=== PATIENT | female | born 1980 | race Caucasian/White ===

== ENCOUNTER 2021-07-09 10:52 | Outpatient (CLI) | payer OTHER | END 2021-07-09 10:53 | disposition home or self-care (01) | LOC: CSHLAB 10:52 | PROVIDERS: ATTEND Obstetrics & Gynecology | DX: Z01.812 Encounter for preprocedural laboratory examination (principal); O32.1XX0 Maternal care for breech presentation, not applicable or unspecified; Z53.9 Procedure and treatment not carried out, unspecified reason | CPT/HCPCS: 85027; 86780; 86850; 86870; 86900; 86901; 87340; U0003; U0005 ==

== ENCOUNTER 2021-07-11 09:55 | Inpatient (IN) | payer OTHER ==
[2021-07-09 14:01] LABS: Hemoglobin 13.3 g/dL (12.0-15.5); Mean Corpuscular HGB CONC 33.8 g/dL (32.0-36.0); Mean Corpuscular Hemoglobin 32.4 pg (27.0-33.0); Mean Corpuscular Volume 96.1 fl (81.6-98.3); Mean Platelet Volume 13.9 fl (7.4-10.4); Platelet Count 184 10x3/uL (150-450); White Blood Cell (WBC) Count 9.9 10x3/uL (3.5-10.5)
[2021-07-09 14:35] LABS: Hep B Surf Ag Non-Reactive S/CO (NonReactive); Syphilis Antibody Nonreactive (Nonreactive); Syphilis Antibody Index 0.04 S/CO (<1.00 Non-Reactive)
[2021-07-09 15:17] LABS: HBSAg Index 0.16 S/CO (0-0.99)
[2021-07-10 12:35] LABS: SARS-CoV-2 PCR by NAA Not Detected (NotDetected)
[2021-07-11] MEDS ORDERED: Ondansetron PF 4 MG/2 ML Vial IVP PRN ×2 (10:42→11:37)
[2021-07-11] MEDS ORDERED: hydrALAZINE 20 MG/ML VIAL SLOW IVP PRN ×2 (10:42→16:26)
[2021-07-11] MEDS ORDERED: Famotidine/PF 20 mg/2ml Vial SLOW IVP PRN (10:42)
[2021-07-11] MEDS ORDERED: ceFAZolin 2 GM/Dextrose 50 ML 2 GM in Premix Bag 1 BAG IVPB SCH (10:42)
[2021-07-11] MEDS ORDERED: Promethazine HCl 25 MG/ML VIAL IM PRN ×2 (10:42→11:37)
[2021-07-11] MEDS ORDERED: Bicitra 30 ML UDCUP PO PRN (10:42)
[2021-07-11] MEDS ORDERED: Lactated Ringer's 1,000 ML IV SCH (10:42)
[2021-07-11 10:52] VITALS: BMI 29.0
[2021-07-11] MEDS ORDERED: Morphine PF 10 MG/10 ML VIAL ONE (11:23)
[2021-07-11] MEDS ORDERED: Ondansetron PF 4 MG/2 ML Vial ONE (11:24)
[2021-07-11] MEDS ORDERED: Ketorolac Tromethamine 30 MG/ML VIAL ONE (11:24)
[2021-07-11] MEDS ORDERED: Phenylephrine 10 MG/ML VIAL ONE (11:24)
[2021-07-11] MEDS ORDERED: Fentanyl 100 MCG/2 ML VIAL ONE (11:24)
[2021-07-11] MEDS ORDERED: Oxytocin 10 UNITS/ML VIAL ONE ×2 (11:25→12:53)
[2021-07-11] MEDS ORDERED: Moisturizing Cream (Eucerin) 113 GM JAR TOP PRN (11:37)
[2021-07-11] MEDS ORDERED: Ondansetron HCl/PF 4 MG/2 ML Vial IVP PRN (11:37)
[2021-07-11] MEDS ORDERED: HYDROmorphone 2 MG/ML VIAL SLOW IVP PRN (11:37)
[2021-07-11] MEDS ORDERED: Meperidine HCl/PF 25 MG/ML VIAL SLOW IVP PRN (11:37)
[2021-07-11] MEDS ORDERED: Naloxone HCl 0.4 mg/ml Vial IVP PRN ×2 (11:37)
[2021-07-11] MEDS ORDERED: Promethazine HCl 25 MG SUPP PR PRN (11:37)
[2021-07-11] MEDS ORDERED: Fentanyl 100 MCG/2 ML VIAL SLOW IVP PRN (11:37)
[2021-07-11] MEDS ORDERED: diphenhydrAMINE 50 MG/ML VIAL IVP PRN (11:37)
[2021-07-11] MEDS ORDERED: Naloxone HCl 0.4 mg/ml Vial IV PRN (11:37)
[2021-07-11] MEDS ORDERED: Communication Order-Pharmacy FS SCH (11:45)
[2021-07-11] MEDS ORDERED: Ketorolac Tromethamine 30 MG/ML VIAL IVP SCH (11:45)
[2021-07-11] MEDS ORDERED: Misoprostol 200 MCG TAB ONE (13:47)
[2021-07-11] MEDS ORDERED: NS w/ Oxytocin 30 units 500 ML IV SCH (16:26)
[2021-07-11] MEDS ORDERED: Lanolin Ointment 7 GM TUBE TOP PRN (16:26)
[2021-07-11] MEDS ORDERED: Measles/Mumps/Rubella 10 MCG/0.5 ML VIAL SC ONE (16:26)
[2021-07-11] MEDS ORDERED: Bisacodyl 10 MG SUPP PR PRN (16:26)
[2021-07-11] MEDS ORDERED: Acetaminophen 325 MG TAB PO PRN (16:26)
[2021-07-11] MEDS ORDERED: Boostrix 0.5 ML (Tdap) VIAL IM ONE (16:26)
[2021-07-11] MEDS ORDERED: diphenhydrAMINE 25 MG CAP PO PRN (16:26)
[2021-07-11] MEDS ORDERED: Simethicone Chewable 80 MG TAB PO PRN (16:26)
[2021-07-11] MEDS ORDERED: Varicella virus, LIVE 0.5 ML VIAL SC ONE (16:26)
[2021-07-11] MEDS ORDERED: Misoprostol 200 MCG TAB PR PRN (16:26)
[2021-07-11] MEDS ORDERED: HYDROcodone/Acetaminophen 5/325 mg Tablet PO PRN ×2 (16:26)
[2021-07-11] MEDS: Ferrous Sulfate 325 MG TAB PO SCH (22:03)
[2021-07-11] MEDS: Docusate 100 MG CAP PO SCH (22:03)
[2021-07-11] MEDS: Ketorolac Tromethamine 30 MG/ML VIAL IVP PRN (22:03)
[2021-07-12] MEDS ORDERED: Methylergonovine 0.2 MG/ML VIAL IM SCH (01:45)
[2021-07-12 02:52] LABS: Mean Corpuscular HGB CONC 35.2 g/dL (32.0-36.0); Mean Corpuscular Hemoglobin 32.8 pg (27.0-33.0); Mean Corpuscular Volume 93.4 fl (81.6-98.3); Mean Platelet Volume 12.2 fl (7.4-10.4); Platelet Count 185 10x3/uL (150-450); RBC Distribution Width 13.1 % (11.5-14.5); Red Blood Cell (RBC) Count 2.74 10x6/uL (3.90-5.03); White Blood Cell (WBC) Count 22.3 10x3/uL (3.5-10.5)
[2021-07-12] MEDS ORDERED: ceFAZolin 2 GM/Dextrose 50 ML 2 GM in Premix Bag 1 BAG IVPB SCH (03:00)
[2021-07-12] MEDS ORDERED: Tranexamic Acid 1,000 MG in Sodium Chloride 0.9% 250 ML 250 ML IVPB ONE (03:15)
[2021-07-12 03:48] LABS: D-Dimer Test 14.18 mg/L FEU (0.19-0.50); INR-International Normal Ratio 0.9; PTT 25.9 sec (22.0-33.0); Prothrombin Time 9.7 sec (9.5-12.1)
[2021-07-12] MEDS: Ketorolac Tromethamine 30 MG/ML VIAL IVP PRN (04:00)
[2021-07-12] MEDS ORDERED: Ibuprofen 800 MG TAB PO SCH ×2 (08:00→14:00)
[2021-07-12] MEDS ORDERED: Methylergonovine 0.2 MG TAB PO SCH (09:00)
[2021-07-12] MEDS ORDERED: Prenatal Vitamin 1 TAB PO SCH (09:00)
[2021-07-12] MEDS: Ferrous Sulfate 325 MG TAB PO SCH ×2 (09:01→21:52)
[2021-07-12] MEDS: Docusate 100 MG CAP PO SCH ×2 (09:01→21:52)
[2021-07-12] MEDS ORDERED: Rocuronium Bromide 10 MG/ML (10ML VIAL) ONE (10:28)
[2021-07-12] MEDS ORDERED: Lidocaine 1% PF 5 ML VIAL ONE (10:28)
[2021-07-12] MEDS ORDERED: PROPOFOL 20 ML ONE (10:28)
[2021-07-12] MEDS ORDERED: Fentanyl 100 MCG/2 ML VIAL ONE (10:28)
[2021-07-12] MEDS ORDERED: Succinylcholine 200 MG/10 ml SYRINGE FS ONE (10:28)
[2021-07-12 10:45] LABS: Hemoglobin 6.9 g/dL (12.0-15.5)
[2021-07-12] MEDS ORDERED: Dexamethasone 20 MG/5 ML VIAL ONE (11:00)
[2021-07-12] MEDS ORDERED: Ondansetron PF 4 MG/2 ML Vial ONE (11:00)
[2021-07-12] MEDS ORDERED: PHENYLEPHRINE-NS 100 MCG/ML 10 ML SYRINGE ONE ×2 (11:03)
[2021-07-12] MEDS ORDERED: Oxytocin 10 UNITS/ML VIAL ONE ×2 (11:04→11:36)
[2021-07-12] MEDS ORDERED: CEFAZOLIN 1 GM VIAL ONE (11:07)
[2021-07-12] MEDS ORDERED: ePHEDrine Sulfate 50 MG/10 ML VIAL ONE (11:11)
[2021-07-12] MEDS ORDERED: SUGAMMADEX SODIUM 200 MG/2 ML VIAL ONE (11:27)
[2021-07-12] MEDS ORDERED: Misoprostol 200 MCG TAB ONE (11:28)
[2021-07-12] MEDS ORDERED: Glycopyrrolate 0.2 MG/ML 5 ML SYRINGE ONE (11:59)
[2021-07-12] MEDS ORDERED: hydrALAZINE 20 MG/ML VIAL SLOW IVP PRN (12:24)
[2021-07-12] MEDS ORDERED: Acetaminophen 325 MG TAB PO PRN (12:24)
[2021-07-12] MEDS ORDERED: Simethicone Chewable 80 MG TAB PO PRN (12:24)
[2021-07-12] MEDS ORDERED: Ondansetron PF 4 MG/2 ML Vial IVP PRN (12:24)
[2021-07-12] MEDS ORDERED: HYDROcodone/Acetaminophen 5/325 mg Tablet PO PRN (12:24)
[2021-07-12] MEDS ORDERED: Bisacodyl 10 MG SUPP PR PRN (12:24)
[2021-07-12] MEDS ORDERED: Boostrix 0.5 ML (Tdap) VIAL IM ONE (12:24)
[2021-07-12] MEDS ORDERED: diphenhydrAMINE 25 MG CAP PO PRN (12:24)
[2021-07-12] MEDS ORDERED: Lanolin Ointment 7 GM TUBE TOP PRN (12:24)
[2021-07-12] MEDS ORDERED: NS w/ Oxytocin 30 units 500 ML IV SCH (12:30)
[2021-07-12] MEDS: Methylergonovine 0.2 MG TAB PO SCH ×2 (12:41→16:43)
[2021-07-12 12:56] LABS: Hemoglobin 8.7 g/dL (12.0-15.5); Platelet Count 137 10x3/uL (150-450)
[2021-07-12 13:23] LABS: D-Dimer Test 11.32 mg/L FEU (0.19-0.50); INR-International Normal Ratio 0.9; PTT 28.4 sec (22.0-33.0); Prothrombin Time 9.9 sec (9.5-12.1)
[2021-07-12] MEDS: Ibuprofen 800 MG TAB PO SCH ×2 (15:48→16:21)
[2021-07-12] MEDS: Lactated Ringer's 1,000 ML IV SCH ×2 (15:48→21:12)
[2021-07-12] MEDS: HYDROcodone/Acetaminophen 5/325 mg Tablet PO PRN ×2 (16:22→20:24)
[2021-07-13] MEDS: Ibuprofen 800 MG TAB PO SCH ×4 (00:59→22:02)
[2021-07-13] MEDS: HYDROcodone/Acetaminophen 5/325 mg Tablet PO PRN ×3 (06:47→22:01)
[2021-07-13] MEDS: Lactated Ringer's 1,000 ML IV SCH ×2 (08:00→19:09)
[2021-07-13 08:23] LABS: Mean Corpuscular HGB CONC 33.1 g/dL (32.0-36.0); Mean Corpuscular Hemoglobin 29.7 pg (27.0-33.0); Mean Corpuscular Volume 89.8 fl (81.6-98.3); Mean Platelet Volume 12.4 fl (7.4-10.4); Platelet Count 131 10x3/uL (150-450); RBC Distribution Width 16.5 % (11.5-14.5); Red Blood Cell (RBC) Count 3.03 10x6/uL (3.90-5.03); White Blood Cell (WBC) Count 17.7 10x3/uL (3.5-10.5)
[2021-07-13] MEDS: Prenatal Vitamin 1 TAB PO SCH (08:31)
[2021-07-13] MEDS: Docusate 100 MG CAP PO SCH ×2 (08:32→22:02)
[2021-07-13] MEDS: Ferrous Sulfate 325 MG TAB PO SCH ×2 (08:32→22:02)
[2021-07-14] MEDS: Ibuprofen 800 MG TAB PO SCH (05:50)
[2021-07-14] MEDS: HYDROcodone/Acetaminophen 5/325 mg Tablet PO PRN ×2 (05:50→11:06)
[2021-07-14] MEDS: Ferrous Sulfate 325 MG TAB PO SCH (08:24)
[2021-07-14] MEDS: Docusate 100 MG CAP PO SCH (08:24)
[2021-07-14] MEDS: Prenatal Vitamin 1 TAB PO SCH (08:24)
[2021-07-14 09:30] VITALS: TEMP 98.8
[2021-07-14 11:08] VITALS: BP 133/76
== END 2021-07-14 12:45 | disposition home or self-care (01) | DRG 787 ==
LOC: CSHLD 09:55 → CSHPP 16:00
PROVIDERS: ADMIT Obstetrics & Gynecology; ATTEND Obstetrics & Gynecology
PROC: 10D00Z1 Extraction of Products of Conception, Low, Open Approach (ICD-10-PCS; principal; 2021-07-11)
PROC: 3E0334Z Introduction of Serum, Toxoid and Vaccine into Peripheral Vein, Percutaneous Approach (ICD-10-PCS; 2021-07-11)
PROC: 10D17Z9 Manual Extraction of Products of Conception, Retained, Via Natural or Artificial Opening (ICD-10-PCS; 2021-07-12)
PROC: 30233N1 Transfusion of Nonautologous Red Blood Cells into Peripheral Vein, Percutaneous Approach (ICD-10-PCS; 2021-07-12)
DX: O32.1XX0 Maternal care for breech presentation, not applicable or unspecified (principal); O72.2 Delayed and secondary postpartum hemorrhage; Z3A.39 39 weeks gestation of pregnancy; Z37.0 Single live birth; Z20.822 Contact with and (suspected) exposure to COVID-19; Z90.49 Acquired absence of other specified parts of digestive tract; O26.893 Other specified pregnancy related conditions, third trimester; Z67.11 Type A blood, Rh negative; N85.8 Other specified noninflammatory disorders of uterus; O99.893 Other specified diseases and conditions complicating puerperium; O90.81 Anemia of the puerperium; D64.9 Anemia, unspecified
CPT/HCPCS: 36415; 36430; 51702; 76815; 85027; 85049; 85300; 85362; 85379; 85384; 85461; 85610; 85730; 86780; 86850; 86870; 86900; 86901; 86922; 87340; 88305; 90384; 96372; 99285; J0690; J1100; J1885; J2210; J2274; J2370; J2405; J2590; J2704; J3010; J7050; P9016; S0028; U0003; U0005

== ENCOUNTER 2023-01-03 10:52 | Outpatient (CLI) | payer OTHER | END 2023-01-03 10:53 | disposition home or self-care (01) | LOC: CSHMAMMO 10:52 | PROVIDERS: ATTEND Obstetrics & Gynecology | DX: Z12.31 Encounter for screening mammogram for malignant neoplasm of breast (principal); Z80.3 Family history of malignant neoplasm of breast | CPT/HCPCS: 77063; 77067 ==